=== PATIENT | female | born 1975 | race Caucasian/White ===

== ENCOUNTER → 2017-03-22 | Day surgery (SDC) | payer MEDICAID ==
[~2017-03-22] VITALS: Ht 167.6 cm; Wt 133.0 kg
[~2017-03-22] MED LIST: ALPR.5 PO; CHLORHEXIDINE GLUCONATE 2 % 1 PACK (2 CLOTHS) TOPICAL PRN; CHLORHEXIDINE GLUCONATE 4% SOLN 120 ML BTL TOPICAL SCH; CLINDAMYCIN 900 MG/NS 100 ML IV SCH; HYDR12.57 PO; INSULIN HUMAN REGULAR 1,000 UNITS/10 ML VIAL SQ PRN; KETOROLAC TROMETHAMINE 30 MG/ML (IVP) VIAL ONE; LACTATED RINGER'S 1000 ML IV PRN; LIDOCAINE 0.5%/EPINEPHrine 1:200,000 SOLN 50 ML VIAL INFIL ONE; LIDOCAINE HCL 2% 50 ML VIAL INFIL ONE; LISI-515 PO; MAPA500T13 PO; MEPERIDINE HCL 25 MG/ML VIAL ONE; METOPROLOL TARTRATE 25 MG TAB PO PRN; MIDAZOLAM HCL 2 MG/2 ML VIAL ONE; POVIDONE IODINE 5% (ANTISEPSIS KIT) 4 APPLICATIONS EACH NARE PRN; PROMETHAZINE INJ 25 MG/ML VIAL ONE; SODIUM CHLOR 0.9% 250 ML INJ 250 ML ONE; SODIUM CHLORID 0.9% 500 ML IV PRN; SODIUM CHLORIDE 0.9% INJ 100 ML ONE; TRAM50TA PO; TRIAMCINOLONE ACETONIDE 40 MG/ML VIAL ONE; VANCOMYCIN 1000 MG/NS 250 ML (for <70 kg) IV SCH; VANCOMYCIN HCL 1000 MG VIAL ONE
[2017-03-22 12:10] VITALS: PULSE 62
[2017-03-22 13:20] VITALS: BP 110/60; PULSE 75; RESP 14; TEMP 97.8; O2SAT 99
--- NOTE | 2017-03-22 23:04 | MP ---
cc: KENNY ALATORRE M.D. DATE OF SURGERY 03/22/[address] Elizabeth Alatorre PREOPERATIVE DIAGNOSIS Tear medial meniscus right knee joint. POSTOPERATIVE DIAGNOSIS 1. Osteoarthritis right knee joint. 2. Tear posterior horn medial meniscus. PROCEDURE Arthroscopic subtotal medial meniscectomy with chondroplasty. PROCEDURE IN DETAIL The patient was placed on the operating table in the supine position and adequate general anesthesia was administered by the anesthesiologist. The patient's right knee was then prepped and draped in usual sterile fashion. An Esmarch bandage was used to exsanguinate the right lower extremity and pneumatic tourniquet was inflated to 300. An anterolateral stab wound was made and a portal created and the joint was distended with lactated Ringer's solution. An anteromedial portal was used for instrumentation. A systematic examination of the joint revealed a small amount of clear yellow fluid evacuated. There appeared to be normal suprapatellar pouch and patellofemoral joint. The anterior and posterior cruciate ligaments were identified and found to be intact. The medial compartment had a small tear of the posterior horn which was more of a flap and this was then excised with a meniscal resector motorized in nature. The articular surface over the middle one third of the medial meniscus did appear to be eroded with a stage I chondromalacia which did not require chondroplasty with the same motorized instrument. The lateral compartment was entered and found to be totally unremarkable. The instruments were removed after thorough irrigation and aspiration. The two stab wounds were closed with simple 3-0 nylon. An intra-articular injection of 10 mL of 0.5% Marcaine with epinephrine was instilled in the knee joint. Xeroform gauze was applied over both stab wounds and the sterile dressing was applied over this. The tourniquet was deflated after 15 minutes. Sponge count, needle count and instrument counts were reported correct x2. The estimated blood loss was nil. The patient was transferred to the recovery room in satisfactory condition. Kenny Alatorre MD KENZIE/ /12:04 PM /11:02 PM
== END | disposition home or self-care (01) ==
LOC: PHSDC 08:22
PROVIDERS: ATTEND Orthopaedic Surgery
DX: S83.241A Other tear of medial meniscus, current injury, right knee, initial encounter (principal); M17.11 Unilateral primary osteoarthritis, right knee; M94.261 Chondromalacia, right knee
CPT/HCPCS: 01400; 29881; J1885; J2175; J2250; J2550; J3010; J3370; J7050; J7120; J3301